=== PATIENT | male | born 1970 | race Caucasian/White ===

== ENCOUNTER 2024-07-21 12:28 | Emergency (ER) | payer OTHER, SELFPAY ==
[2024-07-21] VITALS (15 sets, daily range): BP systolic 150–160; BP diastolic 115–120; PULSE 61–80; TEMP 36.8; O2SAT 95–98; BMI 30.4
--- NOTE | 2024-07-21 14:34 | ECG_ITS ---
[facility] Test Date: 2024-07-21 Pat Name: LUANN LEWIS Department: Room: - Gender: Male [employer]: : [id number] Requested By: Order Number: [id number] Reading MD: SOPHIE PAVON Measurements Intervals [place] Rate: 68 P: 24 NH: 140 QRS: 42 QRSD: 104 T: 24 QT: 418 QTc: 435 Interpretive Statements 1100 Sinus rhythm 9110 normal ECG Compared to ECG 05/09/2019 15:30:52 No significant changes Electronically Signed On 07-23-2024 8:08:31 EST by SOPHIE PAVON
--- NOTE | 2024-07-21 14:56 | ED_ITS ---
HPI HPI - General Adult General Chief complaint: Extremity Problem, Nontraumatic Stated complaint: BILATERAL FEET SWELLING, GROIN, HIP & RAMSES LEG PAIN Time Seen by Provider: 07/21/24 14:17 Source: patient and family Limitations: no limitations History of Present Illness HPI narrative: Patient is a 54-year-old male who is presenting to the ER today with chief complaint of chronic complaints to the right lower back, right hip, and right great lumbar radiculopathy. All systems are negative except as noted/marked. All systems reviewed and otherwise negative. Nurses note and vital signs reviewed and patient is not hypoxic. General: The patient appears well and in no apparent distress. Patient is resting comfortably on cart. Patient is not toxic, lethargic, or listless Skin: Warm, dry, no pallor noted. There is no rash noted. No petechiae, purpura. Head: Normocephalic, atraumatic Eye: Normal conjunctiva, no drainage, EOMI. PERRL Ears, Nose, Mouth, and Throat: oral mucosa is moist. Nares patent. Mouth without vesicles. Cardiovascular: Regular Rate and Rhythm, no murmur, gallop, rub Respiratory: Patient is in no distress, no accessory muscle use, lungs are clear to auscultation, no wheezing, rales or rhonchi Back: non-tender, no CVA tenderness bilaterally to percussion. No CT LS midline pain GI: no tenderness to palpation, no masses appreciated. No rebound, guarding, or rigidity noted. No distention Musculoskeletal: Patient has full range of motion of all of the extremities, no motor, sensory, or focal neurological deficits Neurological: A&O x4, normal speech Psychiatric: Cooperative Related Data Previous Rx's ?Medication ?Instructions ?Recorded hydrochlorothiazide 12.5 mg tablet 12.5 mg PO DAILY #20 tabs 07/21/24 ketorolac 10 mg tablet 10 mg PO Q8H PRN pain 1 day #10 07/21/24 tabs lidocaine 5 % topical patch 1 patch topical Q24H #15 ea 07/21/24 (Lidoderm) methocarbamol 500 mg tablet 500 mg PO Q8H PRN muscle pain #10 07/21/24 tabs methylprednisolone 4 mg tablets in 4 mg PO DAILY 6 days #21 ea 07/21/24 a dose pack (Medrol (Jesse)) Allergies Allergy/AdvReac Type Severity Reaction Status Date / Time No Known Drug Allergies Allergy Verified 07/21/24 13:37 Opioid HPI Opioid Management Most Recent Opioid Data: Last Pain Scale 7 07/21/24 15:15 07/21/24 Last MAR Pain Assessment 07/21/24 15:15 PFSH PFSH Social History Little interest or pleasure in doing things: not at all Feeling down, depressed, or hopeless: not at all Exam Constitutional Vital Signs, click to edit/add: Last Vital Signs Temp 98.3 F 07/21/24 13:37 Pulse 64 07/21/24 16:15 Resp 18 07/21/24 16:15 BP 160/115 H 07/21/24 16:15 Pulse Ox 98 07/21/24 16:15 O2 Del Method Room Air 07/21/24 13:37 Course Vital Signs Vital signs: Vital Signs Temperature 98.3 F 07/21/24 13:37 Pulse Rate 77 07/21/24 13:37 Respiratory Rate 16 07/21/24 13:37 Blood Pressure 150/120 H 07/21/24 13:37 Pulse Oximetry 98 07/21/24 13:37 Oxygen Delivery Method Room Air 07/21/24 13:37 Temperature 98.3 F 07/21/24 13:37 Pulse Rate 64 07/21/24 16:15 Respiratory Rate 18 07/21/24 16:15 Blood Pressure 160/115 H 07/21/24 16:15 Pulse Oximetry 98 07/21/24 16:15 Oxygen Delivery Method Room Air 07/21/24 13:37 Medical Decision Making MDM Narrative Medical decision making narrative: Patient feels somewhat better with Toradol injection and [place]. Lab work shows no acute findings. Chief concern to the was cancer, CBC with differential shows no significant findings. Education on right sciatica, piriformis syndrome, leg swelling was discussed. Patient is prescribed half a dose of hydrochlorothiazide 12.5 mg to help with leg swelling. We have discussed and educated patient on leg swelling and elevation. Patient was educated on using Tylenol Motrin. Patient is told me multiple times he does not like to take any medication and is not done anything to help with the pain in the last several weeks to months to his right lower back and hip. Patient has not been doing any ice, heat, no stretching, he has done nothing. Patient lab testing shows no acute findings. Patient CBC with differential, CMP, testing shows no acute findings. Patient was educated that he needs to reestablish a PCP or see the health department again, he needs to reestablish health care. Patient has been on blood pressure medication in the past, patient has not taken any blood pressure medication and 3 to 5 years. Patient was educated on the below information with his and patient at bedside prior to discharge: Patient has asymptomatic hypertension in the emergency room today. Patient will either go to a drugstore, pharmacy, or where she is to her or your doctors office to have your blood pressure checked intermittently. A better idea is to buy a blood pressure cuff at home that is appropriate size, the pharmacist can help make sure that you use size is appropriate. Take your blood pressure twice a day for the next 1 to 2 weeks. If your blood pressure is consistently elevated 140/90, follow-up with your PCP for medication changes or adjustment as indicated. If you are having any significant headache, severe chest pain or heaviness or tightness, shortness of breath, passing out, or any other acute symptoms, please return to the ER for further evaluation or if you have any other acute concerns. Lab Data Lab results reviewed: Yes I reviewed the patient's lab results Labs: Lab Results 07/21/24 Range/Units 14:51 WBC 5.0 (4.0-11.0) 10^3/uL RBC 4.04 L (4.70-6.10) 10^6/uL Hgb 12.1 L (14.0-18.0) g/dL Hct 35.0 L (42.0-54.0) % MCV 86.6 (80.0-94.0) fL MCH 30.0 (25.9-34.0) pg MCHC 34.6 (29.9-35.2) g/dL RDW 11.8 (11.0-15.0) % Plt Count 269 (150-450) 10^3/uL MPV 9.9 (9.5-13.5) fL Neut % (Auto) 48.1 (43.0-75.0) % Lymph % (Auto) 36.1 (20.5-60.0) % [place] % (Auto) 10.0 (1.7-12.0) % Eos % (Auto) 5.0 (0.9-7.0) % Baso % (Auto) 0.6 (0.2-2.0) % Neut # (Auto) 2.4 (1.4-6.5) 10^3/uL Lymph # (Auto) 1.8 (1.2-3.8) 10^3/uL [place] # (Auto) 0.5 (0.3-0.8) 10^3/uL Eos # (Auto) 0.3 (0.0-0.7) 10^3/uL Baso # (Auto) 0.0 (0.0-0.1) 10^3/uL Abs Immat Gran (auto) 0.01 (0.00-0.03) 10^3/uL Imm/Tot Granulo (auto) 0.2 (0.0-0.5) % Sodium 138 (136-145) mmol/L Potassium 3.9 (3.5-5.1) mmol/L Chloride 102 (98-107) mmol/L Carbon Dioxide 28.9 (21.0-32.0) mmol/L Anion Gap 11.0 BUN 17.0 (7.0-18.0) mg/dL Creatinine 1.08 (0.70-1.30) mg/dL Est GFR ( Amer) >60 (>=60 mL/min/1.73m^2) Est GFR (Non-Af Amer) >60 (>=60 mL/min/1.73m^2) BUN/Creatinine Ratio 15.7 Glucose 97 (74-106) mg/dL Calcium 9.4 (8.5-10.1) mg/dL NT-Pro-B Natriuret Pep 200.0 (<=900.0) pg/mL ECG Data Attestation: I personally reviewed and interpreted this ECG as follows: (EKG interpretation. Normal sinus rhythm at 68 beats a minute. Normal axis deviation. No acute ST elevation, no acute ectopy. QTc of 435.) Discharge Plan Discharge Chief Complaint: Extremity Problem, Nontraumatic Clinical Impression: Chronic right-sided low back pain with right-sided sciatica, Bilateral leg edema, Medically noncompliant Patient Disposition: Home, Self-Care Time of Disposition Decision: 16:37 Condition: Fair Prescriptions / Home Meds: New hydrochlorothiazide 12.5 mg tablet 12.5 mg PO DAILY Qty: 20 0RF methocarbamol 500 mg tablet 500 mg PO Q8H PRN (Reason: muscle pain) Qty: 10 0RF ketorolac 10 mg tablet 10 mg PO Q8H PRN (Reason: pain) 1 Days Qty: 10 0RF lidocaine [Lidoderm] 5 % adhesive patch,medicated 1 patch topical Q24H Qty: 15 0RF Rx Instructions: leave on most painful area for up to 12 hrs methylprednisolone [Medrol (Jesse)] 4 mg tablets,dose pack 4 mg PO DAILY 6 Days Qty: 21 0RF Rx Instructions: as directed Print Language: Armenian Instructions: Sciatica (ED), Chronic Pain (ED), Leg Edema (ED), Lumbar Radiculopathy (ED), Piriformis Syndrome (ED), Lower Back Exercises (ED) Additional Instructions: Use ice 20 minutes on, 20 minutes off, do not use heat. Perform your sciatica stretching and sciatica stretching exercises 3-4 times a day for the next 1 to 2 weeks. When you are using the Medrol Dosepak, you may improve after Medrol Dosepak has been finished, remained to have return of pain. Alternate Tylenol and either Motrin, Advil, or ibuprofen every 4 hours to help with pain. Maximum dose of Tylenol is 3000 mg a day. Maximum dose of either Motrin, Advil, or ibuprofen is 2400 mg a day. You need to establish a PCP or the health department to establish primary care physician to treat ongoing symptoms. hydroChlorothiazide has been prescribed to you to help with lower leg edema. Keep Let elevated at bedtime as discussed at bedside. Elevate the in the the bed 1 to 2 feet to help with elevation while you are sleeping and help with decrease venous stasis while sleeping. Referrals: Physician,Non-Staff, MD [Primary Care Provider] - 1 week
[2024-07-21 15:10] LABS: Basophils Percent Auto 0.6 % (0.2-2.0); Eosinophils Absolute Auto 0.3 10^3/uL (0.0-0.7); Hemoglobin 12.1 g/dL (14.0-18.0); Immature Granulocytes Abs Auto 0.01 10^3/uL (0.00-0.03); Immature Granulocytes Pct Auto 0.2 % (0.0-0.5); Lymphocytes Absolute Auto 1.8 10^3/uL (1.2-3.8); Lymphocytes Percent Auto 36.1 % (20.5-60.0); Mean Corpuscular HGB Conc 34.6 g/dL (29.9-35.2); Mean Corpuscular Volume 86.6 fL (80.0-94.0); Mean Platelet Volume 9.9 fL (9.5-13.5); Monocytes Absolute Auto 0.5 10^3/uL (0.3-0.8); Neutrophils Absolute Auto 2.4 10^3/uL (1.4-6.5); Neutrophils Percent Auto 48.1 % (43.0-75.0); Platelet Count 269 10^3/uL (150-450); Red Blood Count 4.04 10^6/uL (4.70-6.10); Red Cell Distribution Width 11.8 % (11.0-15.0)
[2024-07-21 15:14] LABS: BUN Creatinine Ratio 15.7; Calcium 9.4 mg/dL (8.5-10.1); Carbon Dioxide 28.9 mmol/L (21.0-32.0); Chloride 102 mmol/L (98-107); Estimated GFR (African America >60 (>=60 mL/min/1.73m^2); Estimated GFR (Non-African Ame >60 (>=60 mL/min/1.73m^2); Glucose 97 mg/dL (74-106); Potassium 3.9 mmol/L (3.5-5.1); Sodium 138 mmol/L (136-145)
[2024-07-21] MEDS: HYDROCODONE/ACET 5-325 MG TABLET 1 TAB PO (15:15)
[2024-07-21] MEDS: KETOROLAC TROMETHAMINE 30 MG/ML VIAL IM (15:15)
== END 2024-07-21 16:44 | disposition home or self-care (01) ==
PROVIDERS: Emergency Provider Emergency Medicine
DX: M54.41 Lumbago with sciatica, right side (principal); R60.0 Localized edema; I10 Essential (primary) hypertension; Z91.199 Patient's noncompliance with other medical treatment and regimen due to unspecified reason
CPT/HCPCS: 36415; 80048; 83880; 85025; 93005; 96372; 99284; J1885